=== PATIENT | female | born 1985 | race Caucasian/White ===

== ENCOUNTER 2016-11-04 00:14 | Emergency (ER) | payer OTHER ==
[~2016-11-04] VITALS: Ht 157.5 cm; Wt 76.0 kg
[2016-11-04 00:17] VITALS: Ht 157.5 cm; Wt 76.0 kg
[2016-11-04] MEDS ORDERED: IBUP800T25 PO (06:08)
--- NOTE | 2016-11-04 09:12 | ERD ---
DATE OF SERVICE: ATTENDING PHYSICIAN: Dr. Meeks. HISTORY OF PRESENT ILLNESS: The patient is a 31-year-old female coming in complaining of left arm p ain and left knee pain after she fell at work today. 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 She slipped on a wet spot on the floor and it caught her foot and she fell. She did not hit her head or have loss of consciousness. She has had no vomiting. She was told to come directly to the ER. She is not taking medications for her symptoms. She states she is able to ambulate wit hout difficulty. She just has pain with movement of the extremities. PAST MEDICAL HISTORY: Hypertension, diabetes, hypercholesterolemia, hypothyroidism. SURGICAL HISTORY: Denies. ALLERGIES TO MEDICATIONS: Denies. SOCIAL HISTORY: Denies. REVIEW OF SYSTEMS: A 12-point review of systems was done. Refer to HPI for positives, all other sy stems negative. PHYSICAL EXAMINATION VITAL SIGNS: Temperature is 98.6, pulse 89, blood pressure is 141/82, respiratory 18, O2 saturation 98% on room air. Pain intensity 8/10. GENERAL: The patient is well-appearing, well-nourished, no acute distress. HEART: Regular rate and rhythm. No murmurs, clicks, rubs or gallops. No S3 or S4. CHEST: Clear to auscultation bilaterally. There are no rales, wheezes or rhonchi. HEENT: Atraumatic. Conjunctivae are pink. Pupils equal, round, and reactive to light. ABDOMEN: Soft, nontender and nondistended. Good bowel sounds. No rebound or guarding. No gross per itonitis. No gross organomegaly or masses. No Salcedo sign or McBurney point tenderness. SKIN EXAM: Normal. EXTREMITIES: The patient has full range of motion with flexion and extension of the bilateral upper and lower extremities. There is no laxity. No crepitus felt on exam and no obvious deformities. Patient's strength with active and passive range of motion is 5/5. Pulses are intact and patient is neurovascularly intact. Patient's gait is normal. DIAGNOSIS: Muscle contusion. MEDICAL DECISION MAKING: I did not feel that there was indication for x-rays at this time. Patient likely sustained muscle contusions secondary to fall, but I did not feel that further workup or cade ging was indicated. EMERGENCY ROOM COURSE: Patient was given ibuprofen in the ER ____ ibuprofen. DISCHARGE: The patient is discharged stable. Patient given prescription for ibuprofen and told to follow up with primary care within 1 to 2 days for reevaluation. The patient was told if symptoms p rogress or worsen to return to the ER. All other questions answered at time of discharge. Discharg e summary given at the time of departure. Patient understood and complied with plan. Dictated By: EUSEBIO POON for PIERRE FALCON/FLORY Conf#: [id number] DID#: [id number]
== END 2016-11-04 06:39 | disposition home or self-care (01) ==
LOC: FTE 00:14
DX: T14.8 Other injury of unspecified body region (principal); I10 Essential (primary) hypertension; E11.9 Type 2 diabetes mellitus without complications; E03.9 Hypothyroidism, unspecified; W01.0XXA Fall on same level from slipping, tripping and stumbling without subsequent striking against object, initial encounter; Y92.512 Supermarket, store or market as the place of occurrence of the external cause
CPT/HCPCS: 99283